=== PATIENT | female | born 1950 | race Caucasian/White ===

== ENCOUNTER → 2016-11-27 | Outpatient (CLI) | payer OTHER, MEDICARE ==
[~2016-11-27] MED LIST: ASPIR 8181 MG PO; BISACODYL10 MG RECTAL; CARDIZEM CD180 MG PO; CELEXA10 MG PO; CENTRUM SILVER1 EAC4 PO; CLARITIN10 MG PO; FOLIC ACID1 MG PO; HEPARIN SO5000 UNIT2 SUBQ; HYDROCORTISONE30 G9 TOP; LEVOTHYROXINE150 MCG PO; MIRALAX17 GM PO; PREDNISONE 5 MG5 M1 PO; PRILOSEC 20 MG20 MG PO; PROCRIT 1010000 U/ML IJ; PROSTATE HEALT1 EAC1 PO; PROTONIX40 M1 PO; RENVELA0.8 GM PO; SODIUM BICARBO650 M3 PO; TYLENOL325 MG PO
== END ==
LOC: HYPER 07:04
DX: T81.4XXD Infection following a procedure, subsequent encounter (principal); M32.9 Systemic lupus erythematosus, unspecified; Z86.73 Personal history of transient ischemic attack (TIA), and cerebral infarction without residual deficits; Y83.8 Other surgical procedures as the cause of abnormal reaction of the patient, or of later complication, without mention of misadventure at the time of the procedure

== ENCOUNTER → 2017-03-11 | Outpatient (CLI) | payer OTHER, MEDICARE | LOC: HYPER 02-10 07:00 | DX: T81.31XD Disruption of external operation (surgical) wound, not elsewhere classified, subsequent encounter (principal); I10 Essential (primary) hypertension; Z90.49 Acquired absence of other specified parts of digestive tract; Z86.73 Personal history of transient ischemic attack (TIA), and cerebral infarction without residual deficits; Y83.8 Other surgical procedures as the cause of abnormal reaction of the patient, or of later complication, without mention of misadventure at the time of the procedure ==

== ENCOUNTER → 2019-12-15 | Outpatient (CLI) | payer OTHER, MEDICARE | LOC: HYPER 12:07 | DX: L89.322 Pressure ulcer of left buttock, stage 2 (principal); G81.04 Flaccid hemiplegia affecting left nondominant side; E78.49 Other hyperlipidemia; E03.9 Hypothyroidism, unspecified; E66.09 Other obesity due to excess calories; D73.9 Disease of spleen, unspecified; D68.61 Antiphospholipid syndrome; R21 Rash and other nonspecific skin eruption; I12.0 Hypertensive chronic kidney disease with stage 5 chronic kidney disease or end stage renal disease; N18.6 End stage renal disease; I25.10 Atherosclerotic heart disease of native coronary artery without angina pectoris; I73.00 Raynaud's syndrome without gangrene; K21.9 Gastro-esophageal reflux disease without esophagitis; K22.70 Barrett's esophagus without dysplasia; K22.0 Achalasia of cardia; M32.9 Systemic lupus erythematosus, unspecified; M32.14 Glomerular disease in systemic lupus erythematosus; M81.0 Age-related osteoporosis without current pathological fracture; Z68.30 Body mass index [BMI] 30.0-30.9, adult; Z99.2 Dependence on renal dialysis; Z79.01 Long term (current) use of anticoagulants; Z79.52 Long term (current) use of systemic steroids; Z86.73 Personal history of transient ischemic attack (TIA), and cerebral infarction without residual deficits ==